=== PATIENT | female | born 1995 | race Caucasian/White ===

== ENCOUNTER → 2018-12-16 | Day surgery (SDC) | payer BC ==
[~2018-12-16] VITALS: Ht 157.5 cm; Wt 51.3 kg
[~2018-12-16] MED LIST: OMEPRAZOLE40 MG PO; YASMIN 28 TABL1 EACH PO
[2018-12-16 09:33] VITALS: BP 119/77
[2018-12-16 13:45] VITALS: BP 119/77
--- NOTE | 2018-12-17 06:33 | O ---
[address] [address] OPERATIVE REPORT Name: HORTENSIA QUIROS Room #: REG [facility]#: [id number] Admission: 12/16/18 Attend Phys: Jamal Cook MD Discharge: Date of : 89 Report #: [id number] THIS REPORT FOR: //name// CC: Anatoliy Cook DATE OF SERVICE: 12/16/2018 SERVICE: Orthopedics. FACILITY: [facility]. SURGEON: Jamal Cook MD BENCH TOOL MAKER: Kalyn Medina NP. INDICATION FOR BENCH TOOL MAKER: Extremity positioning, suture, and arthroscope management and assistance with repair and grafting. PREOPERATIVE DIAGNOSES: 1. Right knee anterior cruciate ligament tear. 2. Status post right knee anterior cruciate ligament reconstruction with revision anterior cruciate ligament reconstruction previously. 3. Right knee posterior horn medial meniscus tear. 4. Retained hardware, right knee. 5. Bone cyst, right tibia and femur. POSTOPERATIVE DIAGNOSES: 1. Right knee anterior cruciate ligament tear. 2. Status post right knee anterior cruciate ligament reconstruction with revision anterior cruciate ligament reconstruction previously. 3. Right knee posterior horn medial meniscus tear. 4. Retained hardware, right knee. 5. Bone cyst, right tibia and femur. COMPLICATIONS: None. DRAINS: None. SPECIMENS: None. PROCEDURES: 1. Right knee arthroscopic medial meniscus root tear repair. 2. Right knee arthroscopic debridement. 3. Right knee open hardware removal. 4. Right knee open bone grafting of tibia and femur. [address] [address] OPERATIVE REPORT Name: HORTENSIA QUIROS Room #: REG [facility]#: [id number] Admission: 12/16/18 Attend Phys: Jamal Cook MD Discharge: Date of : 89 Report #: [id number] FINDINGS: 1. Medial meniscus root tear repair with Arthrex meniscal Scorpion with 0 FiberLink x 2 with SwiveLock tibial fixation demineralized bone matrix with cancellous allograft of the tibia and femoral tunnels. 2. Hardware removal successful from the tibia. 3. Torn ACL graft. 4. Intact articular cartilage and lateral meniscus. HISTORY: The patient is a 23-year-old female with history of 2 previous ACL reconstructions. She had an acute injury, which resulted in rupture of her most recent graft, which otherwise had been doing well. She presented to the clinic where x-rays showed a dilated tibial tunnel, which was about 12-13 mm at the maximum diameter, but she has a very small tibia and there was an appearance of a snowman effect from the 2 previous tunnels as well as some dilation at the aperture on the femoral side. She had an MRI, which showed healed tear and a new meniscal root tear of the medial meniscus. We discussed options. We discussed 1-stage as well as 2-stage revision. I ultimately recommended a 2-stage as my hope is to have optimal bone quality to utilize in the ACL reconstruction. In addition, we can separate the rehabilitation program from the medial meniscus repair from the ACL repair in order to advance the ACL rehab postoperatively. She was in agreement with this approach and gave full informed consent. Risks, benefits, alternatives, and indication of surgery were discussed with her. Risks include but not limited to pain, bleeding, infection, injury to nerves or blood vessels, persistent pain despite surgical intervention, failure of any repairs, progression of any preexisting chondral injury, stiffness, need for further surgery, as well as complications related to anesthesia such as stroke, heart attack, pulmonary complications, thromboembolic disease, and . Despite these risks, she wished to proceed. PROCEDURE IN DETAIL: After right lower extremity was correctly identified in the preoperative holding area as the operative extremity, the patient was taken to the operating room where general anesthesia was induced without complication. She was padded appropriately. Prophylactic antibiotics were administered at appropriate time. Tourniquet was applied to right leg. Right lower extremity was then prepped and draped in standard sterile fashion. Time-out procedure was performed. Esmarch was used. Tourniquet inflated to 250 mmHg. Standard anterolateral as well as anteromedial portals were established utilizing previous scars and diagnostic arthroscopy revealed the above findings. The articular cartilage overall was healthy and intact. The medial meniscus anterior horn and body were normal, but the posterior horn had a tear of the root attachment that was full thickness. This could be visualized once the medial spine was burred down to allow direct visualization. The ACL was torn as stated above and the lateral compartment was normal. The shaver was used to debride the ACL stump and visualized both tibial and femoral apertures. The [address] [address] OPERATIVE REPORT Name: YAMILKIRSTYSHARMINA JADEN Room #: REG [facility]#: [id number] Admission: 12/16/18 Attend Phys: Jamal Cook MD Discharge: Date of : 89 Report #: [id number] femur was then cleared up with the shaver and then a curette and then a guidepin was placed in the defect of the tibia after incision was made at the site of her previous hamstring harvest and tibial fixation. The tibia was then sequentially reamed to a size 9 mm reamer, coring out the prior graft and then removing both previous screws, one of which was an interference screw, the other was a sheath and screw-type system. These were removed in full and then the soft tissue from the previous graft was resected with a rasp and the curette as well as a shaver and then a similar approach was used with a transtibial technique to clear out the remaining tissue from the femoral side and then the reamer was used to abrade this as well and then a clean bony bed was achieved on both sides. At this point, attention was turned towards the meniscal root and the FlipCutter was used with the meniscal root targeting device to place the tunnel in the appropriate position at the root and then 2-0 FiberLink sutures were used to perform a luggage tag type sutures through the medial meniscus root and it was pulled down through the bone tunnel. The tunnels did converge which was acceptable to allow, but the fixation would be performed after bone grafting was completed. The Arthrex DBM cancellous allograft injectable mixture was then injected into the femoral side after the wound was irrigated and then suctioned dry. A Schoolcraft was used to compress it and maintain its elevated position without falling into the joint. Similar technique was used to backfill the tibial tunnel and then it was impacted with the Schoolcraft from above and then manually from distal. After this was completed, this was allowed to cue further and it maintained its position and then the knee was placed into extension. Tension was pulled on the 2 sutures and then a 4.75-mm SwiveLock was placed, which provided good fixation of the meniscal root. Scope was placed back into the knee. We were happy with the appearance of all procedures and then the instruments were removed. The deep layer was closed with 0 Vicryl suture. The skin was closed with 2-0 followed by Monocryl. Sterile dressing was applied followed by compression stocking a PolarCare device and knee immobilizer. Postoperative plan is for weightbearing as tolerated with the knee immobilizer on for 3 weeks with range of motion limitation will be 0-90 degrees. We will allow her to walk without the immobilizer with some flexion stride maintained at 0-90 degree limit for 6 weeks. <ELECTRONICALLY SIGNED> By: Jamal Cook MD 12/17/18 [id number] Jamal Cook MD /nt
== END | disposition home or self-care (01) ==
LOC: OR 07:33
DX: S83.511A Sprain of anterior cruciate ligament of right knee, initial encounter (principal); S83.241A Other tear of medial meniscus, current injury, right knee, initial encounter; T84.84XA Pain due to internal orthopedic prosthetic devices, implants and grafts, initial encounter; M85.461 Solitary bone cyst, right tibia and fibula; Z79.899 Other long term (current) drug therapy; X58.XXXA Exposure to other specified factors, initial encounter; Y93.89 Activity, other specified; Y92.89 Other specified places as the place of occurrence of the external cause; Y99.8 Other external cause status
CPT/HCPCS: 50010; 50101; 50386; 50405; 50950; 51038; 51320; 52001; 52282; 52313; 54118; 54170; 55430; 56524; 56527; 57103; 57179; 62110; 62900; 70005